=== PATIENT | male | born 1995 | race Caucasian/White ===

== ENCOUNTER → 2016-08-15 | Outpatient (CLI) | payer OTHER ==
--- NOTE | 2016-08-15 14:28 | DIAGNOSTIC IMAGING REPORT ---
CT SCAN OF THE LEFT HAND WITHOUT IV CONTRAST CLINICAL HISTORY: Left hand injury. COMPARISON STUDY: No priors TECHNIQUE: CT scan of left hand is performed from the wrist to the fingertips. Images are reviewed in the axial, sagittal, and coronal planes. IV contrast was not administered for this examination. 3-D reformats are created and assessed. Note that interpretation is suboptimal without plain film correlate. CT DOSE: 252.59 mGy.cm FINDINGS: The skeletal structures are well mineralized. There are numerous tiny avulsion fractures seen arising from the distal carpal row. There are small cortical defects seen in the underlying bone at these sites and these fractures are likely acute to subacute. A tiny avulsion fracture is seen arising from the proximal radial aspect of the dorsal hamate on axial image #234. A small avulsion fracture arises from the dorsal aspect of the distal radial aspect of the hamate on image #218. A second avulsion fragment seen on image #218 dorsally likely arises from the capitate. A small avulsion fracture is seen arising from the dorsal aspect of the distal trapezoid on axial image #229. No additional fracture is seen. The joint spaces of the wrist and hand are preserved. There is mild dorsal soft tissue edema suggested at the level of the carpal bones. The regional musculature is normal in bulk and signal intensity. The visualized flexor and extensor tendons appear intact. IMPRESSION: 1. There are numerous tiny avulsion fractures seen arising from the dorsal aspect of the distal carpal row. These involve the hamate, the capitate, and the trapezoid as detailed above. There are small cortical defects identified in the underlying bone at these sites and these fractures are likely acute to subacute. 2. No additional fracture is seen. 3. Question mild dorsal soft tissue swelling. Electronically signed by: Surya [place] M.D. 08/15/2016 2:27 PM Dictated Date/Time: 08/15/2016 2:09 PM
== END | disposition home or self-care (01) ==
LOC: C.CTS 13:24
PROVIDERS: ATTEND Family Medicine
DX: S69.92XA Unspecified injury of left wrist, hand and finger(s), initial encounter (principal); X58.XXXA Exposure to other specified factors, initial encounter